=== PATIENT | female | born 1955 | race Caucasian/White ===

== ENCOUNTER 2019-05-07 10:40 | Emergency (ER) | payer OTHER, SELFPAY ==
[2019-05-07 11:06] VITALS: BP 140/81; PULSE 77; RESP 18; TEMP 37.2; O2SAT 98
--- NOTE | 2019-05-07 11:19 | ED.URI ---
HPI - URI/Sore Throat General Chief Complaint: Upper Respiratory Infection Stated Complaint: Nose/Throat Time Seen by Provider: 05/07/19 11:19 Source: patient and RN notes reviewed History of Present Illness HPI Narrative: Patient is a 63-year-old female that presents the urgent care with complaints of sneezing, nasal drainage, hoarse voice. Patient states she is had a lot of sneezing and drainage for 3 days and woke up this morning with a hoarse voice. Patient also reports of mild body aches. Denies any known fever, nausea, vomiting. 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 Patient has been using Tylenol Sinus cold and flu. No other acute complaints. No acute distress noted. Patient read the plan of care. Related Data Home Medications Medication Instructions Recorded Confirmed No Home Medications 05/07/19 05/07/19 Allergies Allergy/AdvReac Type Severity Reaction Status Date / Time No Known Allergies Allergy Verified 05/07/19 11:28 Review of Systems Review of Systems: Narrative: CONSTITUTIONAL: Denies fever, chills, or sweats. EYES: Denies visual changes, redness, or discharge. ENT: Reports of rhinorrhea, sneezing, hoarse voice CARDIOVASCULAR: Denies chest pain, palpitations, or edema. RESPIRATORY: Denies cough or dyspnea. GASTROINTESTINAL: Denies abdominal pain, nausea, vomiting, or diarrhea. GENITOURINARY: Denies dysuria or hematuria. SKIN: Denies rash or itching. MUSCULOSKELETAL: Denies back pain, joint pain, or myalgia. NEUROLOGIC: Denies headache, numbness, or weakness. All other systems reviewed are negative, except as documented in HPI. PMFSH Comments At the time of my signature, I reviewed and agree with the nursing past medical, surgical, social, and family history. There is no relevant family history pertinent to the patient complaint. Exam Narrative: Exam Narrative: GENERAL: This is a well-nourished, well-developed patient, in no apparent distress. HEAD: normocephalic, atraumatic. EYES: PERRL. Sclera clear/white. Vision is grossly intact. EARS: External ears normal, auditory canals clear and without drainage, TMs normal without perforation. Hearing grossly intact. NOSE: External nose normal with no obvious nasal discharge, mild bilateral erythemic nares with clear rhinorrhea. THROAT: Mucous membranes moist, posterior pharynx clear. Moderate postnasal drainage NECK: Neck supple, non-tender without lymphadenopathy CARDIOVASCULAR: Regular rate and rhythm without murmurs, gallops, or rubs. RESPIRATORY: Clear to auscultation. Breath sounds equal bilaterally. No wheezes, rales, or rhonchi. SKIN: warm, intact with no suspicious lesions or rash, good texture and turgor. NEURO: awake, alert, and oriented to person, place and time. There were no obvious focal neurologic abnormalities. EXTREMITIES: No clubbing, cyanosis, or edema. Course Vital Signs Vital signs: Vital Signs Temperature 98.9 F 05/07/19 11:06 Pulse Rate 77 05/07/19 11:06 Respiratory Rate 18 05/07/19 11:06 Blood Pressure 140/81 05/07/19 11:06 Pulse Oximetry 98 05/07/19 11:06 Temperature 98.9 F 05/07/19 11:06 Pulse Rate 77 05/07/19 11:06 Respiratory Rate 18 05/07/19 11:06 Blood Pressure 140/81 05/07/19 11:06 Pulse Oximetry 98 05/07/19 11:06 Reviewed MDM - URI/Sore Throat MDM Narrative Medical decision making narrative: Advised patient to treat her symptoms with [id number] medication such as Claritin or Zyrtec in conjunction with Flonase nasal spray. Increase fluids and rest. Use humidifier at night. Wear a mask and make sure to keep your hands very clean. Even though your symptoms may not be related to influenza, all upper respiratory viruses can be passed along. Follow-up with PCP within 2 to 5 days or for worsening symptoms or failure to improve. Differential Diagnosis Differential diagnosis: Likely upper respiratory infection, otitis
== END 2019-05-07 11:35 | disposition home or self-care (01) ==
PROVIDERS: Emergency Provider Nurse Practitioner Family
DX: J06.9 Acute upper respiratory infection, unspecified (principal); J30.89 Other allergic rhinitis; M19.90 Unspecified osteoarthritis, unspecified site; Z96.641 Presence of right artificial hip joint
CPT/HCPCS: 99201; G0463